=== PATIENT | female | born 1950 | race Caucasian/White ===

== ENCOUNTER 2017-09-25 07:41 | Emergency (ER) | payer MEDICARE, BC, OTHER ==
[~2017-09-25] VITALS: Ht 172.7 cm; Wt 88.5 kg
[2017-09-25 07:43] VITALS: BP 128/65; PULSE 70; RESP 13; TEMP 98.7; O2SAT 98
[2017-09-25] MEDS ORDERED: OMEP20TA93 PO (07:59)
[2017-09-25] MEDS ORDERED: AMBI5TAB PO (07:59)
[2017-09-25] MEDS ORDERED: ORPHENADRINE INJ 60 MG/2 ML AMP IM ONE (08:15)
[2017-09-25] MEDS ORDERED: KETOROLAC TROMETHAMINE 60 MG/2 ML (IM) VIAL IM ONE (08:15)
[2017-09-25] MEDS ORDERED: IBUP1TAB7 PO (08:21)
[2017-09-25] MEDS ORDERED: ROBA500T PO (08:21)
--- NOTE | 2017-09-25 08:23 | PD ---
HPI Chief Complaint: Musculoskeletal Complaint Time Seen by Provider: 08:00 Travel History International Travel<30 days: No Contact w/Intl Traveler<30days: No Traveled to known affect area: No History of Present Illness HPI 67-year-old female presents to the emergency Department with complaint of left upper back pain and left lateral neck pain that radiates to her left shoulder times one week. Denies heavy lifting or injury. Thinks it may be related to "sleeping funny." Denies chest pain, shortness of breath, fevers, vomiting. Denies paresthesias, loss of sensation to the affected extremity. Reports decreased range of motion of the left shoulder secondary to pain. Denies IV drug use or cancer. Pain is 0/10 at rest. Pain is 8/10 with movement. Has taken ibuprofen and tried heating pad with some symptom relief. Aggravated with movement. Better at rest. Primary care provider is in [place]. No known allergies. History of PVCs, insomnia, GERD. Has no other medical complaints. No other modifying factors or associated signs and symptoms. PFSH Past Medical History Cardiovascular Problems: Yes (PALPITATIONS) GERD: Yes Tetanus Vaccination: < 5 Years Social History Alcohol Use: Yes Tobacco Use: No Allergies-Medications (Allergen,Severity, Reaction): Coded Allergies: No Known Allergies (Unverified , 09/25/17) Reported Meds & Prescriptions Reported Meds & Active Scripts Active Ibuprofen 800 Mg Tab 800 Mg PO Q8H PRN Robaxin (Methocarbamol) 500 Mg Tab 500 Mg PO QID PRN Reported Omeprazole 20 Mg Tab 20 Mg PO DAILY Ambien (Zolpidem Tartrate) 5 Mg Tab 2.5 Mg PO HS PRN Review of Systems Except as stated in HPI: all other systems reviewed are Neg Physical Exam Narrative GENERAL: Well-nourished, well-developed female patient, in no acute distress; afebrile, nontoxic-appearing SKIN: Warm and dry. No rash noted to left neck or shoulder area. HEAD: Atraumatic. Normocephalic. EYES: Pupils equal and round. No scleral icterus. No injection or drainage. ENT: Mucosa pink and moist. Airway patent. NECK: Trachea midline. No lymphadenopathy. No midline tenderness on palpation of the cervical spine. Active rotation of the neck greater than 45 to the right; approximately 45 to the left. Reproducible tenderness on palpation to the left lateral trapezius musculature of the neck. No obvious deformities. CARDIOVASCULAR: Regular rate and rhythm. No murmur appreciated. RESPIRATORY: No accessory muscle use. Clear to auscultation. Breath sounds equal bilaterally. GASTROINTESTINAL: Rounded. MUSCULOSKELETAL: Left shoulder with greater than 45 abduction; joint stable; shoulders equal; without tenderness on palpation; without erythema, edema, ecchymosis. Left upper extremity supple and non-tense with 2+ radial pulses and sensory intact and with full squeak rattle and leak repairer strength and equal bilaterally. No obvious deformities. No clubbing. No cyanosis. No edema. Normal gait. BACK: No point tenderness on palpation of her acid spine. Reproducible tenderness to the left upper trapezius muscle of the back. No obvious deformities. NEUROLOGICAL: Awake and alert. Oriented 3. No obvious cranial nerve deficits. Motor grossly within normal limits. Normal speech. Moves all extremities. 5/5 strength to all extremities. Sensory intact. PSYCHIATRIC: Appropriate mood and affect; insight and judgment normal. Data Data Last Documented VS Vital Signs Date Time Temp Pulse Resp B/P (MAP) Pulse Ox O2 Delivery O2 Flow Rate FiO2 09/25/17 07:43 98.7 70 13 128/65 (86) 98 Orders Orders Ketorolac Inj (Toradol Inj) (09/25/17 08:15) Orphenadrine Inj (Norflex Inj) (09/25/17 08:15) [facility] Medical Decision Making Medical Screen Exam Complete: Yes Emergency Medical Condition: Yes Medical Record Reviewed: Yes Differential Diagnosis Stiff neck, cervical radiculopathy, muscle spasm, muscle strain Narrative Course 67-year-old female with left lateral neck pain and stiffness. Denies injury. Afebrile and nontoxic-appearing. No midline tenderness on palpation of the cervical or thoracic spine. Decreased rotation to the left. Reproducible tenderness to the lateral musculature of the neck and upper back of the trapezius muscle. Denies fever, vomiting. Denies IV drug use or cancer. Toradol and Norflex administered in the ER. 0849: Reexamination the patient still reports pain with movement. She is able to rotate her neck to the left more than on previous exam. Patient to follow up with primary care provider if symptoms persist or return to the emergency department with emergent complaints. Robaxin and ibuprofen prescribed for home. Instructed patient to follow up with primary care provider. Patient verbalizes understanding and agreement with treatment plan. Patient is medically cleared and stable for discharge. Discussed reasons to return to the emergency department. Patient agrees with treatment plan. The patients vital signs are stable and the patient is stable for outpatient follow-up and treatment. Patient discharged home, stable and in no acute distress. Diagnosis Primary Impression: Neck pain on left side Additional Impression: Neck muscle spasm Referrals: Primary Care Physician Patient Instructions: General Instructions, Muscle Spasm (ED) Additional Instructions: Tylenol or ibuprofen as directed and as needed to reduce pain Robaxin as prescribed for muscle spasms Get adequate rest Ice and/or heating pad to affected area to reduce pain Avoid aggravating activity; increase activity as tolerated Follow-up with primary care provider Return to the emergency department immediately with worsening symptoms Med/Other Pt SpecificInfo: Prescription(s) given Scripts Ibuprofen (Ibuprofen) 800 Mg Tab 800 MG PO Q8H Y for PAIN SCALE 1 TO 10, #30 TAB 0 Refills Prov: Debbie Mullins 09/25/17 Methocarbamol (Robaxin) 500 Mg Tab 500 MG PO QID Y for MUSCLE SPASM, #30 TAB 0 Refills Prov: Debbie Mullins 09/25/17 Disposition: 01 DISCHARGE HOME Condition: Stable Debbie Mullins Sep 25, 2017 08:23
== END 2017-09-25 09:15 | disposition home or self-care (01) ==
LOC: NEPD 07:41
DX: M54.2 Cervicalgia (principal); M62.838 Other muscle spasm; R00.2 Palpitations; K21.9 Gastro-esophageal reflux disease without esophagitis
CPT/HCPCS: 96372; 99283; J1885; J2360